=== PATIENT | female | born 1940 | race Two or more races ===

== ENCOUNTER 2019-02-19 06:16 | Day surgery (SDC) | payer OTHER ==
[~2019-02-19 06:16] MED LIST: AMLODIPINE BESYL5 MG; ASPIR 8181 MG; CALCIUM 600 +1 EAC3 PO; CHILDREN'S15 MG/1 M1 PO; LOSARTAN-HCTZ1 EAC1; SIMVASTATIN20 MG; SYNTHROID50 MCG; SYNTHROID75 MCG
[2019-02-19] MEDS ORDERED: PERCOCET 5-3251 EACH PO (12:24)
== END 2019-02-19 15:15 | disposition home or self-care (01) ==
LOC: CIR.AMB 06:16 → AMB-ENDOS 12:45 → CIR.AMB 12:45
DX: C73 Malignant neoplasm of thyroid gland (principal)